=== PATIENT | male | born 1960 | race African-American/Black ===

== ENCOUNTER → 2019-09-10 | Outpatient (CLI) | payer OTHER ==
--- NOTE | 2019-09-10 13:50 | KCIC ---
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 Screening for MRI. Technique: 2 views of the orbits. Comparison: None. Findings: No radiopaque foreign body. Patent paranasal sinuses. Impression: 1. No radiopaque foreign body. Electronically signed by: Luis Murray DO (09/10/2019 1:47 PM) [email or web address]
--- NOTE | 2019-09-10 15:57 | KCIC ---
LUMBAR SPINE WO CONTRAST History: Chronic low back pain. Technique: Multiplanar, multi sequential MR imaging was performed of the lumbar spine. Comparison: None Findings: Normal vertebral body height and alignment. No fracture. Right L4 and L5 pedicle and facet bone marrow edema. Right perifacet edema L4-L5 and L5-S1. Conus terminates at the normal location. No evidence of nerve root clumping. L1-L2: No canal or neuroforaminal narrowing. L2-L3: Small posterior disc bulge. No canal narrowing. Mild inferior neuroforaminal narrowing bilaterally. Mild facet arthropathy. L3-L4: Small posterior disc bulge. Moderate facet arthropathy. No canal narrowing. Bilateral neural foraminal disc protrusions. Moderate bilateral neural foraminal narrowing. L4-L5: Broad-based disc bulge. Advanced facet arthropathy. Mild subarticular recess narrowing. No canal narrowing. Severe bilateral neural foraminal narrowing. L5-S1: Small posterior disc bulge. Advanced left and moderate right facet arthropathy. No canal narrowing. Mild bilateral neural foraminal narrowing. Impression: 1. Multilevel lumbar spondylosis. 2. Severe L4-L5 and moderate L3-L4 neural foraminal narrowing. 3. Right perifacet edema L4-L5 and L5-S1. 4. L4 and L5 pedicle and facet edema, may relate to degenerative changes or stress reaction. Electronically signed by: Luis Murray DO (09/10/2019 3:55 PM) [email or web address]
== END | disposition home or self-care (01) ==
LOC: KCIC MRI 13:22
PROVIDERS: ATTEND Family Medicine
DX: Z13.5 Encounter for screening for eye and ear disorders (principal); M47.816 Spondylosis without myelopathy or radiculopathy, lumbar region; M48.07 Spinal stenosis, lumbosacral region; M51.27 Other intervertebral disc displacement, lumbosacral region; M12.88 Other specific arthropathies, not elsewhere classified, other specified site
CPT/HCPCS: 70030; 72148

== ENCOUNTER → 2020-01-11 | Outpatient (CLI) | payer OTHER ==
--- NOTE | 2020-01-11 14:41 | KCIC ---
MRI Cervical Spine Without Contrast History:Neck pain, left shoulder pain since August Technique: Multiplanar, multi sequential noncontrast MR imaging was performed of the cervical spine. Comparison: None Findings: There is motion degradation. Cervical cord caliber is within normal limits. There is focus of increased T2 and STIR signal of the left cord at the C3-4 level about 3 to 4 mm CC by 2 mm AP by 2-3 mm transverse. There is also focus of the right cord at the same level about to 3 mm transverse by 2 mm AP by 3 to 4 mm CC. Cervical vertebral body stature is mostly maintained other than Schmorl's nodes at C4-5. There is moderate to severe degenerative disc disease at C3-4 and to a somewhat lesser degree at C4-5, mild disc desiccation at C6-7 and C2-C3. Vertebral body AP alignment is maintained. There is mild endplate edema inferiorly of C4 and C5 likely reactive/degenerative in etiology. There is degree of diffuse narrowing of the cervical spinal canal on a developmental basis. C2-C3: Central canal is narrowed to about 8 to 9 mm on developmental basis. Right neural foramen is adequate. There is moderate to severe narrowing of the left neural foramen in part due to uncovertebral degenerative change, difficult to exclude shallow protrusion at the anterior margin of the left neural foramen on this motion degraded exam. C3-C4: There is very minimal disc osteophyte complex. Central canal is narrowed to about 7 to 8 mm. There is facet and uncovertebral degenerative change bilaterally. There is fairly severe left greater than right neural foramina compromise. C4-C5: There is minimal disc osteophyte complex, central canal narrowed to about 7 mm. There is bilateral facet hypertrophic change. There is uncovertebral degenerative change greater on the left. There is severe left greater than right neural foramina compromise. C5-C6: There is shallow posterior protrusion slightly indenting the ventral thecal sac, central canal narrowed to about 7-8 mm. There is bilateral facet degenerative change. There is degree of uncovertebral degenerative change. Accurate characterization of the neural foramina is limited due to motion, probable moderate to severe neural foramina compromise bilaterally greater on the left. C6-C7: There is shallow posterior protrusion about 1 to 2 mm AP. Central canal is narrowed to about 8 mm. There is mild buckling of the ligamentum flavum. There is mild facet degenerative change. There is left uncovertebral degenerative change. Accurate characterization of the neural foramina is somewhat limited due to motion, probable moderate to severe left and [id number] right neural foramina compromise C7-T1: Spinal canal is adequate. There is facet degenerative change bilaterally. There is likely degree of uncovertebral change. Accurate characterization of the neural foramina is limited due to motion, suspected at least moderate neural foramina compromise bilaterally. T1-T2: There is facet degenerative change, suspected [id number] right and moderate to severe left neural foramina compromise. Impression: 1. There are foci of nonexpansile cord signal abnormality bilaterally at the C3-4 level, myelomalacia considered most likely. 2. There is degree of diffuse cervical spinal stenosis on developmental basis, additional narrowing as stated on the order of about 7 to 8 mm C3-4 through C5-C6. 3. Facet and uncovertebral degenerative change contributes to multilevel cervical neural foramina compromise as stated although somewhat difficult to accurately characterize on this exam. There is likely more significant neural foramina compromise bilaterally C3-4 through C5-6, left greater than right at C6-7, on the left at C2-3, to a somewhat lesser degree bilaterally at C7-T1 and left greater than right at T1-2. 4. There is multilevel degenerative disc disease greatest C3-4 and C4-5. Electronically signed by: Pete Gu MD (01/11/2020 2:38 PM) [id number]
== END ==
LOC: KCIC MRI 12:20
PROVIDERS: ATTEND Neurological Surgery
DX: M50.31 Other cervical disc degeneration, high cervical region (principal); M48.02 Spinal stenosis, cervical region; M25.78 Osteophyte, vertebrae; M47.813 Spondylosis without myelopathy or radiculopathy, cervicothoracic region
CPT/HCPCS: 72141